=== PATIENT | male | born 1995 | race Caucasian/White ===

== ENCOUNTER 2018-07-29 08:47 | Emergency (ER) | payer SELFPAY ==
[~2018-07-29] VITALS: Ht 177.8 cm; Wt 81.9 kg
[2018-07-29 08:57] VITALS: BP 134/75
--- NOTE | 2018-07-29 09:00 | NUR ---
Pt seen By Dr Lance MOSHER done by same refused care at this time states "I dont need any of your services." AAO, GCS-15 Appropriate and responsive. Able to follow commands. BRP- gait even and steady. HL on R Forearm taken out cannula intact. Pt walked out- refused to sign Aftercare Instructions
== END 2018-07-29 09:10 | disposition home or self-care (01) ==
LOC: ER 08:50
DX: Z53.21 Procedure and treatment not carried out due to patient leaving prior to being seen by health care provider (principal)